=== PATIENT | male | born 1990 | race Caucasian/White ===

== ENCOUNTER 2023-07-04 09:56 | Outpatient (AMB) | payer OTHER, SELFPAY ==
--- NOTE | 2023-07-04 09:56 | MHC.OFFWIV ---
Intake Vital Signs 07/04/23 09:57 Height 5 ft 11 in Weight 180 lb BMI 25.1 BP 110/70 Blood Pressure Location Lt brachial Position Sitting Pulse 87 Pulse Source Pulse Oximeter Temp 97.4 F Temp Source Temporal Artery Scan Pulse Oximetry (%) 98 Oxygen Delivery Method Room Air Intake Visit Reasons: [employer] Back/neck pain Intake Note: pt is here today for back and neck pain started 2 weeks ago Patient Tobacco Use Status: Never used Tobacco Allergies amoxicillin Allergy (Mild, Verified 07/04/23 10:02) Rash Penicillins Allergy (Mild, Verified 07/04/23 10:00) rash Do you need a note to return to daycare/school/sports/work: Yes HPI HPI Comments History of Present Illness Details 33-year-old male complaining of bilateral lower back pain and left-sided thoracic pain for the last few weeks. 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 He also relates he has prominent positive rheumatoid disease and rheumatoid factor. He currently is not under the care of a seafood process worker. He denies any particular injury or trauma to the area but does relate to doing a lot heavy work at home. [facility] Social History Patient Tobacco Use Status: Never used Tobacco Review of Systems Const All systems reviewed & are unremarkable except as noted in HPI and below Eyes Reports no additional complaints ENT Reports no additional complaints Card Reports no additional complaints Resp Reports no additional complaints GI Reports no additional complaints Physical Exam Vital Signs: Last Vital Signs Temp 97.4 F 07/04/23 09:57 Pulse 87 07/04/23 09:57 BP 110/70 07/04/23 09:57 Pulse Ox 98 07/04/23 09:57 Oxygen Delivery Method Room Air 07/04/23 09:57 BMI result Body Mass Index 25.1 Back/Spine/Pelvis Cervical Spine: cervical ROM abnormal (Pain in extension) Thoracic/Lumbar Spine: thoracic and lumbar spine normal to inspection, bend over test abnormal, paraspinal muscle tenderness and thoraco-lumbar spasm Results Reviewed Results Reviewed: X-rays of his lumbar spine revealed some straightening of his lordotic curve otherwise they were unremarkable. This was reviewed with the patient Assessment & Plan Assessment & Plan (1) Spine pain, multilevel: Code(s): M54.9 - Dorsalgia, unspecified Plan: The patient was given a muscle relaxer for his thoracolumbar strain. I ordered lab work for evaluation by his PCP and seafood process worker due to his rheumatoid arthritis. He will follow up with his PCP in the next week (2) Muscle strain of left scapular region: Code(s): S46.912A - Strain of unspecified muscle, fascia and tendon at shoulder and upper arm level, left arm, initial encounter Plan: See plan (3) Lumbar strain: Code(s): S39.012A - Strain of muscle, fascia and tendon of lower back, initial encounter Plan: See plan Plan See plan Orders: Orders XR lumbar spine 2-3V Today M54.9 - Dorsalgia, unspecified Complete Blood Count Auto Diff Today M54.9 - Dorsalgia, unspecified XR thoracic spine 2V Today M54.9 - Dorsalgia, unspecified HLA B27 Today M54.9 - Dorsalgia, unspecified Comprehensive Met. Panel Today M54.9 - Dorsalgia, unspecified Medications: New cyclobenzaprine 5 mg PO Q12H 10 tabs 0RF Coding Level of Care Code Est Pt Level 4 (18796) Diagnoses Spine pain, multilevel M54.9 Muscle strain of left scapular region S46.912A Lumbar strain S39.012A
[2023-07-04 09:57] VITALS: BP 110/70; PULSE 87; TEMP 36.3; O2SAT 98; BMI 25.1
== END 2023-07-04 11:02 | disposition home or self-care (01) ==
PROVIDERS: Visit Provider Physician Assistant Medical
DX: M54.9 Dorsalgia, unspecified (principal); S46.912A Strain of unspecified muscle, fascia and tendon at shoulder and upper arm level, left arm, initial encounter; S39.012A Strain of muscle, fascia and tendon of lower back, initial encounter
CPT/HCPCS: 99214

== ENCOUNTER 2023-07-04 10:17 | Outpatient (REF) | payer OTHER, SELFPAY ==
--- NOTE | ~2023-07-04 | XR_ITS ---
EXAMINATION: THORACIC SPINE, LUMBAR SPINE CLINICAL INFORMATION: Dorsalgia COMPARISON: None available. TECHNIQUE: 2 views thoracic spine, 3 views lumbosacral spine FINDINGS: The thoracic spine appears unremarkable. Vertebral body heights are maintained as are disc spaces. No fractures or bony destructive lesions are seen. Paraspinal soft tissues appear normal. The visualized portions of the heart and lungs are unremarkable. The lumbar spine appears unremarkable. Disc spaces are well-maintained as are vertebral body heights. No fractures or bony destructive lesions. XR/XR lumbar spine 2-3V IMPRESSION: Unremarkable examinations.
--- NOTE | ~2023-07-04 | XR_ITS ---
EXAMINATION: THORACIC SPINE, LUMBAR SPINE CLINICAL INFORMATION: Dorsalgia COMPARISON: None available. TECHNIQUE: 2 views thoracic spine, 3 views lumbosacral spine FINDINGS: The thoracic spine appears unremarkable. Vertebral body heights are maintained as are disc spaces. No fractures or bony destructive lesions are seen. Paraspinal soft tissues appear normal. The visualized portions of the heart and lungs are unremarkable. The lumbar spine appears unremarkable. Disc spaces are well-maintained as are vertebral body heights. No fractures or bony destructive lesions. XR/XR thoracic spine 2V IMPRESSION: Unremarkable examinations.
[2023-07-04 13:10] LABS: MANUAL DIFF FLAG NO
[2023-07-04 13:33] LABS: Basophils Absolute Auto 0.1 X10*3/uL (0.0-0.2); Eosinophils Absolute Auto 0.1 X10*3/uL (0.0-0.4); Eosinophils Percent Auto 1.8 % (0-4); Hematocrit 47.2 % (42.0-52.0); Hemoglobin 16.9 g/dl (14.0-18.0); Imm Gran Abs Auto 0.08 X10*3/uL (0.00-0.03); Imm Gran Pct Auto 1.1 % (0.0-0.4); Lymphocytes Absolute Auto 1.3 X10*3/uL (1.2-4.9); Lymphocytes Percent Auto 18.1 % (20-40); Mean Corpuscular HGB Conc 35.8 g/dl (31.0-36.0); Mean Corpuscular Hemoglobin 31.1 pg (27.0-33.0); Mean Corpuscular Volume 86.8 fL (80.0-98.0); Mean Platelet Volume 9.8 fL (9.4-12.4); Monocytes Absolute Auto 0.6 X10*3/uL (0.1-1.2); Monocytes Percent Auto 7.6 % (2-11); Neutrophils Absolute Auto 5.1 x10*3/uL (2.0-8.3); Neutrophils Percent Auto 70.4 % (45-73); Platelet Count 262 X10*3/uL (160-400); Red Blood Count 5.44 X10*6/uL (4.60-5.80); Red Cell Distribution Width 11.4 % (11.0-16.0); White Blood Count 7.2 X10*3/uL (4.8-10.8)
[2023-07-04 13:49] LABS: Alanine Aminotransferase 76 U/L (0-40); Albumin Level 4.7 g/dL (3.5-5.0); Alkaline Phosphatase 79 U/L (39-117); Anion Gap 10 (12-20); Aspartate Amino Transferase 37 U/L (5-37); Bilirubin Total 0.6 mg/dL (0.0-1.0); Blood Urea Nitrogen 11 mg/dL (9-16); Calcium 9.8 mg/dL (8.4-10.2); Carbon Dioxide 29 mmol/L (22-29); Chloride 105 mmol/L (96-108); Estimated Glomerular Filt Rate > 60; Glucose Random 92 mg/dL (60-115); Potassium 4.2 mmol/L (3.3-5.1); Sodium 140 mmol/L (135-145); Total Protein 7.9 g/dL (6.5-8.0)
[2023-07-09 01:43] LABS: HLA B27 Negative (Negative)
== END 2023-07-04 10:18 | disposition home or self-care (01) ==
LOC: HO.HMGCX 10:17
PROVIDERS: Visit Provider Physician Assistant Medical
DX: M54.9 Dorsalgia, unspecified (principal)
CPT/HCPCS: 36415; 72070; 72100; 80053; 85025; 86812

== ENCOUNTER 2023-10-18 08:28 | Outpatient (AMB) | payer OTHER, SELFPAY ==
--- NOTE | 2023-10-18 08:34 | A.OFFVIS_ITS ---
Vital Signs 10/18/23 08:35 Height 5 ft 11 in Weight 183 lb 3.266 oz BMI 25.5 BP 118/72 Blood Pressure Location Lt brachial Position Sitting Pulse 95 Pulse Source Pulse Oximeter Pulse Oximetry (%) 97 Oxygen Delivery Method Room Air Intake Visit Reasons: RA Intake Note: New patient externally referral by PCP Marcella Ragland for RA. Patient, states he has had it as long as he can remember. Patient states he has been using ice and heat for relief. States he now has a crushing pain in his back. Allergies amoxicillin Allergy (Mild, Verified 10/18/23 08:40) Rash Penicillins Allergy (Mild, Verified 10/18/23 08:40) rash Medication List - Last Reconciled 10/18/23 by Gregory Chan MD cyclobenzaprine 5 mg PO Q12H HPI Comments Details: This is a 33-year-old male who presents for evaluation of arthritis. He states that over the last 6 months he has been having low back pain and stiffness, morning stiffness of his back lasting at least 1 hour. 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 He was never on any injectables. At that time he was having pain and swelling of his ankles, knees, elbows. He states that he continues to have joint pains in those areas but he has learned to deal with it has not been evaluated by a waterproofing supervisor since childhood. States that he was diagnosed with Crohn's colitis since around 2008 and was on different medicines for it, he was taking different NSAIDs and he developed stomach ulcers, these meds had to be discontinued, eventually he had an exploratory laparotomy and was found to have Meckel's diverticulitis which was resected. Since then he has not had any stomach issues. He also states that he was diagnosed with psoriasis since childhood, since then he would have different patches of psoriasis on his scalp and different areas, recently it has been more prominent on his palms. It is itchy, he treats it with moisturizers. His mother and maternal grandfather both have psoriasis Patient denies any fevers or unintentional weight loss. Denies history suggestive of uveitis [facility] Medical History (Updated 10/18/23 @ 09:48 by Gregory Chan MD) CASSIA (juvenile idiopathic arthritis) Psoriasis Stomach ulcer History of sinus problem Meckel's diverticulitis Surgical History H/O exploratory laparotomy Family History Mother Breast cancer Psoriasis Father Heart attack Maternal Grandfather Psoriasis Social History Alcohol intake: current Alcohol intake frequency: a few times a week Patient Tobacco Use Status: Never used Tobacco Current occupational status: employed Current occupation: salesman Review of Systems Const Denies fever(s) and Denies weight loss Musc Reports back pain, Reports arthralgias, Reports joint swelling and Reports stiffness Skin/Breast Reports lesions and Reports rash Physical Exam Vital Signs: Last Vital Signs Pulse 95 10/18/23 08:35 BP 118/72 10/18/23 08:35 Pulse Ox 97 10/18/23 08:35 Oxygen Delivery Method Room Air 10/18/23 08:35 BMI result Body Mass Index 25.5 Const General: cooperative, healthy appearing and comfortable Nutritional Appearance: average body habitus Orientation/consciousness: patient oriented x3 Limitations: no limitations HEENT Head: Yes normocephalic and Yes atraumatic Mouth: moist mucous membranes Resp Effort & Inspection: normal respiratory effort and able to speak in complete sentences Auscultation: clear to auscultation bilaterally Cardio Rate: regular rate Rhythm: regular rhythm Skin Other: Large psoriasis patches on both palms Neuro General: patient oriented x3 Extrem Other: Hands and fingers are puffy but there is no active synovitis Negative MCP squeeze test Right 3rd finger nail pitting Limited lateral flexion test bilaterally Jo test 10-13.5 cm Normal range of motion of neck Negative straight leg raise test bilaterally Negative Fabere test bilaterally No knee swelling or tenderness bilaterally No knee pain with flexion-extension bilaterally No ankle swelling or tenderness Negative MTP squeeze test bilaterally Assessment & Plan Assessment & Plan (1) Ankylosing spondylitis: Code(s): M45.9 - Ankylosing spondylitis of unspecified sites in spine Category: Medical Qualifiers: Ankylosing spondylitis location: sacrococcygeal region Qualified Code(s): M45.8 - Ankylosing spondylitis sacral and sacrococcygeal region Plan: This is a 33-year-old male with history of juvenile idiopathic arthritis and psoriasis who presents for evaluation of chronic low back pain for the last 6 months associated with morning stiffness lasting at least 1 hour. Clinical picture consistent with new onset ankylosing spondylitis. Check labs and imaging. Patient was on NSAIDs in the past for Crohn's colitis and he had to be discontinued due to peptic ulcers. Patient needs a different DMARDs, DMARDs such as methotrexate, leflunomide, sulfasalazine are not effective for axial disease which seems to be his most symptomatic area. Discussed risks and benefits of TNF inhibitors, patient agreed to proceed. Will start prior authorization for Humira or its bio similars pending -ve T-spot Follow-up in 6-8 weeks Plan I spent 47 minutes reviewing patient's chart, evaluating patient, ordering d iagnostic workup, counseling patient and documenting in the chart Orders: Orders Comprehensive Met. Panel Today M45.9 - Ankylosing spondylitis of unspecified sites in spine C Reactive Protein Today M45.9 - Ankylosing spondylitis of unspecified sites in spine Erythrocyte Sedimentation Rate Today M45.9 - Ankylosing spondylitis of unspecified sites in spine Protein Electrophoresis, Serum Today M45.9 - Ankylosing spondylitis of unspecified sites in spine T Spot TB Today Z11.7 - Encounter for testing for latent tuberculosis infection Cyclic Citrullinated Peptide Today M25.50 - Pain in unspecified joint NIRMAL Reflex Titer and Pattern Today M25.50 - Pain in unspecified joint XR ankle LT min 3V Today M45.9 - Ankylosing spondylitis of unspecified sites in spine XR ankle RT min 3V Today M45.9 - Ankylosing spondylitis of unspecified sites in spine XR hand wrist LT Today M45.9 - Ankylosing spondylitis of unspecified sites in spine XR lumbar spine 4V min Today M45.9 - Ankylosing spondylitis of unspecified sites in spine Complete Blood Count Auto Diff Today M45.9 - Ankylosing spondylitis of unspecified sites in spine Hepatitis A,B,C Profile Today Z11.59 - Encounter for screening for other viral diseases Immunofixation Pnl, Serum Today M45.9 - Ankylosing spondylitis of unspecified sites in spine HLA B27 Today M45.9 - Ankylosing spondylitis of unspecified sites in spine Rheumatoid Factor Today M25.50 - Pain in unspecified joint XR hand wrist RT Today M45.9 - Ankylosing spondylitis of unspecified sites in spine XR sacroiliac joint min 3V Today M45.9 - Ankylosing spondylitis of unspecified sites in spine XR foot LT min 3V Today M45.9 - Ankylosing spondylitis of unspecified sites in spine XR foot RT min 3V Today M45.9 - Ankylosing spondylitis of unspecified sites in spine Coding Level of Care Code New Pt Level 4 (44026) Diagnoses Ankylosing spondylitis of sacrococcygeal region M45.8 Ankylosing spondylitis location: sacrococcygeal region
[2023-10-18 08:35] VITALS: BP 118/72; PULSE 95; O2SAT 97; BMI 25.5
== END 2023-10-18 09:20 | disposition home or self-care (01) ==
PROVIDERS: PCP Physician Assistant; Referring Provider Physician Assistant; Visit Provider Student in an Organized Health Care Education/Training Program
DX: M45.8 Ankylosing spondylitis sacral and sacrococcygeal region (principal)
CPT/HCPCS: 99204

== ENCOUNTER 2023-10-18 08:28 | Outpatient (REF) | payer OTHER, SELFPAY ==
--- NOTE | ~2023-10-18 | XR_ITS ---
EXAMINATION: XR ANKLE, RIGHT XR FOOT, RIGHT CLINICAL INFORMATION: Ankylosing spondylitis. COMPARISON: None available. TECHNIQUE: AP, lateral, and mortise views of the right ankle. AP, lateral, and oblique views of the right foot. FINDINGS: No fracture. Alignment is anatomic. No erosions. Joint spaces are maintained. Soft tissues are normal. XR/XR ankle RT min 3V IMPRESSION: Normal right ankle. Electronically signed by: Cal Ramirez MD 11/15/2023 12:38 PM EDT
--- NOTE | ~2023-10-18 | XR_ITS ---
EXAMINATION: XR HAND/WRIST, RIGHT XR HAND/WRIST, LEFT CLINICAL INFORMATION: Ankylosing spondylitis COMPARISON: None TECHNIQUE: PA, lateral, and oblique views of the each hand and wrist. FINDINGS: RIGHT HAND/WRIST: The bones and soft tissues are normal. No fracture. Alignment is anatomic. Joint spaces are maintained. No erosions or soft tissue calcifications. LEFT HAND/WRIST: The bones and soft tissues are normal. No fracture. Alignment is anatomic. Joint spaces are maintained. No erosions or soft tissue calcifications. XR/XR hand wrist LT IMPRESSION: Normal radiographs of the hands and wrists. No radiographic signs of inflammatory arthropathy. Electronically signed by: Kevin Duron MD 11/05/2023 07:04 PM EDT
--- NOTE | ~2023-10-18 | XR_ITS ---
EXAMINATION: XR ANKLE, RIGHT XR FOOT, RIGHT CLINICAL INFORMATION: Ankylosing spondylitis. COMPARISON: None available. TECHNIQUE: AP, lateral, and mortise views of the right ankle. AP, lateral, and oblique views of the right foot. FINDINGS: No fracture. Alignment is anatomic. No erosions. Joint spaces are maintained. Soft tissues are normal. XR/XR foot RT min 3V IMPRESSION: Normal right ankle. Electronically signed by: Cal Ramirez MD 11/15/2023 12:38 PM EDT
--- NOTE | ~2023-10-18 | XR_ITS ---
EXAMINATION: XR LUMBAR SPINE XR SACROILIAC JOINTS CLINICAL INDICATION: Spondylitis of unspecified sites in spine. COMPARISON: 07/04/2023 lumbar spine. TECHNIQUE: 5 views of the lumbar spine. 3 views of the sacroiliac joints. FINDINGS: LUMBAR SPINE: Redemonstration of asymmetric sclerotic focus measuring approximately 1.2 cm overlying the medial aspect of the left iliac wing/sacrum. Slight leftward curvature of the lumbar spine. Straightening of the normal lumbar lordosis. Facet arthritis in the lower lumbar spine. Lumbar vertebral body heights and disc space heights are preserved. Possible spondylolysis at L5-S1 is difficult to evaluate due to overlying bony structures. BILATERAL SACROILIAC JOINTS: Asymmetric degenerative changes in the right sacroiliac joint greater than left. XR/XR sacroiliac joint min 3V IMPRESSION: 1. Redemonstration of asymmetric sclerotic focus measuring approximately 1.2 cm overlying the medial aspect of the left iliac wing/sacrum. 2. Facet arthritis in the lower lumbar spine. 3. Possible spondylolysis at L5-S1 is difficult to evaluate due to overlying bony structures. 4. Asymmetric degenerative changes in the right sacroiliac joint greater than left. This study was presented today October 18, 2023 for interpretation. Stat results provided at this time as requested by referring provider.
--- NOTE | ~2023-10-18 | XR_ITS ---
EXAMINATION: XR ANKLE, LEFT XR FOOT, LEFT CLINICAL INFORMATION: Ankylosing spondylitis. COMPARISON: None available. TECHNIQUE: AP, lateral, and mortise views of the left ankle. AP, lateral, and oblique views of the left foot. FINDINGS: No fracture. Alignment is anatomic. No erosions. Joint spaces are maintained. Soft tissues are normal. XR/XR foot LT min 3V IMPRESSION: Normal left ankle. Electronically signed by: Cal Ramirez MD 11/15/2023 12:36 PM EDT
--- NOTE | ~2023-10-18 | XR_ITS ---
EXAMINATION: XR HAND/WRIST, RIGHT XR HAND/WRIST, LEFT CLINICAL INFORMATION: Ankylosing spondylitis COMPARISON: None TECHNIQUE: PA, lateral, and oblique views of the each hand and wrist. FINDINGS: RIGHT HAND/WRIST: The bones and soft tissues are normal. No fracture. Alignment is anatomic. Joint spaces are maintained. No erosions or soft tissue calcifications. LEFT HAND/WRIST: The bones and soft tissues are normal. No fracture. Alignment is anatomic. Joint spaces are maintained. No erosions or soft tissue calcifications. XR/XR hand wrist RT IMPRESSION: Normal radiographs of the hands and wrists. No radiographic signs of inflammatory arthropathy. Electronically signed by: Kevin Duron MD 11/05/2023 07:04 PM EDT
--- NOTE | ~2023-10-18 | XR_ITS ---
EXAMINATION: XR LUMBAR SPINE XR SACROILIAC JOINTS CLINICAL INDICATION: Spondylitis of unspecified sites in spine. COMPARISON: 07/04/2023 lumbar spine. TECHNIQUE: 5 views of the lumbar spine. 3 views of the sacroiliac joints. FINDINGS: LUMBAR SPINE: Redemonstration of asymmetric sclerotic focus measuring approximately 1.2 cm overlying the medial aspect of the left iliac wing/sacrum. Slight leftward curvature of the lumbar spine. Straightening of the normal lumbar lordosis. Facet arthritis in the lower lumbar spine. Lumbar vertebral body heights and disc space heights are preserved. Possible spondylolysis at L5-S1 is difficult to evaluate due to overlying bony structures. BILATERAL SACROILIAC JOINTS: Asymmetric degenerative changes in the right sacroiliac joint greater than left. XR/XR lumbar spine 4V min IMPRESSION: 1. Redemonstration of asymmetric sclerotic focus measuring approximately 1.2 cm overlying the medial aspect of the left iliac wing/sacrum. 2. Facet arthritis in the lower lumbar spine. 3. Possible spondylolysis at L5-S1 is difficult to evaluate due to overlying bony structures. 4. Asymmetric degenerative changes in the right sacroiliac joint greater than left. This study was presented today October 18, 2023 for interpretation. Stat results provided at this time as requested by referring provider.
--- NOTE | ~2023-10-18 | XR_ITS ---
EXAMINATION: XR ANKLE, LEFT XR FOOT, LEFT CLINICAL INFORMATION: Ankylosing spondylitis. COMPARISON: None available. TECHNIQUE: AP, lateral, and mortise views of the left ankle. AP, lateral, and oblique views of the left foot. FINDINGS: No fracture. Alignment is anatomic. No erosions. Joint spaces are maintained. Soft tissues are normal. XR/XR ankle LT min 3V IMPRESSION: Normal left ankle. Electronically signed by: Cal Ramirez MD 11/15/2023 12:36 PM EDT
[2023-10-18 09:45] LABS: MANUAL DIFF FLAG NO
[2023-10-18 10:24] LABS: Imm Gran Pct Auto 3.6 % (0.0-0.4); Mean Corpuscular HGB Conc 36.2 g/dl (31.0-36.0); Mean Corpuscular Hemoglobin 31.1 pg (27.0-33.0); Mean Corpuscular Volume 85.9 fL (80.0-98.0); Mean Platelet Volume 9.1 fL (9.4-12.4); Neutrophils Percent Auto 67.4 % (45-73); Platelet Count 315 X10*3/uL (160-400); Red Blood Count 5.47 X10*6/uL (4.60-5.80); Red Cell Distribution Width 11.6 % (11.0-16.0)
[2023-10-18 10:25] LABS: Basophils Absolute Auto 0.1 X10*3/uL (0.0-0.2); Basophils Percent Auto 0.9 % (0-2); Eosinophils Absolute Auto 0.1 X10*3/uL (0.0-0.4); Eosinophils Percent Auto 1.3 % (0-4); Imm Gran Abs Auto 0.32 X10*3/uL (0.00-0.03); Lymphocytes Absolute Auto 1.7 X10*3/uL (1.2-4.9); Lymphocytes Percent Auto 18.4 % (20-40); Monocytes Absolute Auto 0.8 X10*3/uL (0.1-1.2); Monocytes Percent Auto 8.4 % (2-11)
[2023-10-18 10:54] LABS: Alanine Aminotransferase 124 U/L (0-40); Albumin Level 4.7 g/dL (3.5-5.0); Alkaline Phosphatase 88 U/L (39-117); Anion Gap 14 (12-20); Aspartate Amino Transferase 52 U/L (5-37); Bilirubin Total 0.4 mg/dL (0.0-1.0); Blood Urea Nitrogen 10 mg/dL (9-16); C Reactive Protein 0.39 mg/dL (< or = 0.50); Calcium 9.8 mg/dL (8.4-10.2); Carbon Dioxide 24 mmol/L (22-29); Chloride 105 mmol/L (96-108); Estimated Glomerular Filt Rate > 60; Glucose Random 102 mg/dL (60-115); Potassium 4.3 mmol/L (3.3-5.1); Sodium 139 mmol/L (135-145)
[2023-10-18 10:58] LABS: Erythrocyte Sedimentation Rate 6 MM/HR (0-15)
[2023-10-18 11:00] LABS: Rheumatoid Factor < 13.0 IU/mL (<15.0)
[2023-10-18 11:11] LABS: HBS Num1 283.53 mIU/mL (0-7.99); HBc Num1 0.08 S/CO (0.00-0.79); HBsAGNum1 0.27 S/CO (0.00-0.99); Hepatitis B Core Antibody Nonreactive (Nonreactive); Hepatitis B Surface Antigen Negative (Negative); ~HepC Num1 0.11 S/CO (0.00-0.79); ~Hepatitis A Antibody IgM Nonreactive (Nonreactive); ~Hepatitis B Surface Antibody REACTIVE (Nonreactive); ~Hepatitis C Antibody Nonreactive (Nonreactive)
[2023-10-19 22:14] LABS: IgA 166 mg/dL (47-310); IgG 1103 mg/dL (600-1640); IgM 100 mg/dL (50-300)
[2023-10-20 13:09] LABS: Prot Elec - Albumin 4.7 g/dL (3.8-4.8); Prot Elec - Alpha1 0.3 g/dL (0.2-0.3); Prot Elec - Alpha2 0.6 g/dL (0.5-0.9); Prot Elec - Beta 1 0.5 g/dL (0.4-0.6); Prot Elec - Beta 2 0.4 g/dL (0.2-0.5); Prot Elec - Total Protein 7.5 g/dL (6.1-8.1)
[2023-10-21 16:29] LABS: TS Negative Control Passed; TS Panel A 0; TS Panel B 1; TS Positive Control Passed; TSpotTB Negative (Negative)
[2023-10-23 10:39] LABS: Anti Nuclear Antibody Screen NEGATIVE (NEGATIVE)
[2023-10-23 16:25] LABS: Cyclic Citrullinated Peptide <16 UNITS
[2023-10-24 23:08] LABS: HLA B27 Negative (Negative)
== END 2023-10-18 08:29 | disposition home or self-care (01) ==
LOC: HO.XRAY 08:28
PROVIDERS: PCP Physician Assistant; Visit Provider Student in an Organized Health Care Education/Training Program
DX: Z11.7 Encounter for testing for latent tuberculosis infection (principal); Z11.59 Encounter for screening for other viral diseases; M45.9 Ankylosing spondylitis of unspecified sites in spine; M25.50 Pain in unspecified joint; M45.8 Ankylosing spondylitis sacral and sacrococcygeal region; Z72.89 Other problems related to lifestyle
CPT/HCPCS: 36415; 72110; 72202; 73110; 73130; 73610; 73630; 80053; 82784; 84165; 85025; 85652; 86038; 86140; 86200; 86334; 86431; 86481; 86704; 86706; 86709; 86803; 86812; 87340

== ENCOUNTER 2024-01-31 07:58 | Outpatient (REF) | payer OTHER, SELFPAY | END 2024-01-31 07:59 | disposition home or self-care (01) | LOC: HO.MRI 07:58 | PROVIDERS: PCP Physician Assistant; Visit Provider Student in an Organized Health Care Education/Training Program | DX: M45.8 Ankylosing spondylitis sacral and sacrococcygeal region (principal) | CPT/HCPCS: 72195 ==

== ENCOUNTER → 2024-01-31 08:17 | Outpatient (BNV) | payer OTHER, SELFPAY | PROVIDERS: PCP Physician Assistant; Visit Provider Radiology Diagnostic Radiology | DX: M89.9 Disorder of bone, unspecified (principal) | CPT/HCPCS: 72195 ==

== ENCOUNTER 2024-03-27 07:49 | Outpatient (AMB) | payer OTHER, SELFPAY ==
--- NOTE | 2024-03-27 08:04 | A.OFFVIS_ITS ---
Vital Signs 03/27/24 08:07 Height 5 ft 11 in Weight 194 lb 3.636 oz BMI 27.1 BP 120/80 Blood Pressure Location Lt brachial Position Sitting Pulse 95 Pulse Source Pulse Oximeter Pulse Oximetry (%) 98 Oxygen Delivery Method Room Air Intake Visit Reasons: RA (discuss MRI results) Intake Note: Patient presents for RA. Allergies amoxicillin Allergy (Mild, Verified 03/27/24 08:07) Rash Penicillins Allergy (Mild, Verified 03/27/24 08:07) rash Medication List - Last Reconciled 03/27/24 by Gregory Chan MD adalimumab (Humira(CF) Pen) inject one - 40 mg/0.4 mL pen every 2 weeks subcut HPI Comments Details: Patient presents for follow-up after completion of his diagnostic workup. He continues to feel about the same. He states that 4-5 days out of the week he would wake up with pain and morning stiffness of his back lasting 1-2 hours improved with stretching, moving around and hot showers. He has had bilateral elbow bilateral knee and ankle pain since his childhood. His rashes are better now. Initial history: This is a 33-year-old male who presents for evaluation of arthritis. He states that over the last 6 months he has been having low back pain and stiffness, morning stiffness of his back lasting at least 1 hour. 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 He was never on any injectables. At that time he was having pain and swelling of his ankles, knees, elbows. He states that he continues to have joint pains in those areas but he has learned to deal with it has not been evaluated by a professor of french since childhood. States that he was diagnosed with Crohn's colitis since around 2008 and was on different medicines for it, he was taking different NSAIDs and he developed stomach ulcers, these meds had to be discontinued, eventually he had an exploratory laparotomy and was found to have Meckel's diverticulitis which was resected. Since then he has not had any stomach issues. He also states that he was diagnosed with psoriasis since childhood, since then he would have different patches of psoriasis on his scalp and different areas, recently it has been more prominent on his palms. It is itchy, he treats it with moisturizers. His mother and maternal grandfather both have psoriasis Patient denies any fevers or unintentional weight loss. Denies history suggestive of uveitis [facility] Medical History CASSIA (juvenile idiopathic arthritis) Psoriasis Stomach ulcer History of sinus problem Meckel's diverticulitis Surgical History H/O exploratory laparotomy Family History Mother Breast cancer Psoriasis Father Heart attack Maternal Grandfather Psoriasis Social History Alcohol intake: current Alcohol intake frequency: a few times a week Patient Tobacco Use Status: Never used Tobacco Current occupational status: employed Current occupation: salesman Review of Systems Const Denies fever(s) and Denies weight loss Musc Reports back pain, Reports arthralgias, Reports joint swelling and Reports stiffness Physical Exam Vital Signs: Last Vital Signs Pulse 95 03/27/24 08:07 BP 120/80 03/27/24 08:07 Pulse Ox 98 03/27/24 08:07 Oxygen Delivery Method Room Air 03/27/24 08:07 BMI result Body Mass Index 27.1 Const General: cooperative, healthy appearing and comfortable Nutritional Appearance: average body habitus Orientation/consciousness: patient oriented x3 Limitations: no limitations HEENT Head: Yes normocephalic and Yes atraumatic Mouth: moist mucous membranes Resp Effort & Inspection: normal respiratory effort and able to speak in complete sentences Skin Other: Resolving rash on left palm Neuro General: patient oriented x3 Extrem Other: Hands and fingers are puffy but there is no active synovitis Negative MCP squeeze test Right 3rd finger nail pitting Limited lateral flexion test bilaterally Jo test 10-13.5 cm Normal range of motion of neck Negative straight leg raise test bilaterally Negative Roman test bilaterally No knee swelling or tenderness bilaterally No knee pain with flexion-extension bilaterally No ankle swelling or tenderness Negative MTP squeeze test bilaterally Assessment & Plan Assessment & Plan (1) Ankylosing spondylitis: Code(s): M45.9 - Ankylosing spondylitis of unspecified sites in spine Category: Medical Qualifiers: Ankylosing spondylitis location: sacrococcygeal region Qualified Code(s): M45.8 - Ankylosing spondylitis sacral and sacrococcygeal region Plan: This is a 33-year-old male with history of juvenile idiopathic arthritis and psoriasis who presents for evaluation of chronic low back pain for the last 6 months associated with morning stiffness lasting at least 1 hour. On initial history I suspected ankylosing spondylitis/non radiographic axial spa versus psoriatic arthritis. His blood work is unremarkable with normal inflammatory markers and negative serologies including HLA B27. His pelvic MRI did not show sacroiliitis however patient's history is quite convincing for a seronegative spondyloarthropathy. Patient was on NSAIDs in the past for Crohn's colitis and had to be discontinued due to peptic ulcers We discussed risks and benefits of Humira. Patient agreed to proceed. Humira was approved, start Humira 40 mg every other week. Advised patient to monitor his symptoms and we will re-evaluate him next visit Labs before next visit in 3 months (2) High risk medication use: Code(s): Z79.899 - Other exterminator helper termite (current) drug therapy Category: Medical Plan: Side effects of Humira were discussed with the patient in detail including increased risk of infection, demyelinating disease, reactivation of latent TB, possible increased risk of solid and skin tumors. Patient fully aware. Advised patient to seek medical care JESSE if patient has an infection and advised patient to stop the medication until the infection is resolved. (3) Transaminitis: Code(s): R74.01 - Elevation of levels of liver transaminase levels Category: Medical Plan: Patient consumes 3-4 12 oz beers 3-4 nights a week. Advised patient to cut down significantly Plan I spent 27 minutes reviewing patient's chart, evaluating patient, ordering diagnostic workup, counseling patient and documenting in the chart Orders: Orders Complete Blood Count Auto Diff 3 Months M45.8 - Ankylosing spondylitis sacral and sacrococcygeal region, Z79.899 - Other exterminator helper termite (current) drug therapy C Reactive Protein 3 Months M45.8 - Ankylosing spondylitis sacral and sacrococcygeal region, Z79.899 - Other exterminator helper termite (current) drug therapy Comprehensive Met. Panel 3 Months M45.8 - Ankylosing spondylitis sacral and sacrococcygeal region, Z79.899 - Other chcf (current) drug therapy Erythrocyte Sedimentation Rate 3 Months M45.8 - Ankylosing spondylitis sacral and sacrococcygeal region, Z79.899 - Other exterminator helper termite (current) drug therapy Medications: Refilled adalimumab (Humira(CF) Pen) inject one - 40 mg/0.4 mL pen every 2 weeks subcut 2 ea 2RF Coding Level of Care Code Est Pt Level 4 (81564) Complex EM visit Add On G2211 Diagnoses Ankylosing spondylitis of sacrococcygeal region M45.8 Ankylosing spondylitis location: sacrococcygeal region High risk medication use Z79.899 Transaminitis R74.01
[2024-03-27 08:07] VITALS: BP 120/80; PULSE 95; O2SAT 98; BMI 27.1
== END 2024-03-27 08:46 | disposition home or self-care (01) ==
PROVIDERS: PCP Physician Assistant; Visit Provider Student in an Organized Health Care Education/Training Program
DX: M45.8 Ankylosing spondylitis sacral and sacrococcygeal region (principal); Z79.899 Other long term (current) drug therapy; R74.01 Elevation of levels of liver transaminase levels
CPT/HCPCS: 99214

== ENCOUNTER → 2024-11-15 14:13 | Outpatient (BNVA) | payer SELFPAY | PROVIDERS: PCP Physician Assistant; Visit Provider Student in an Organized Health Care Education/Training Program | DX: Z13.89 Encounter for screening for other disorder (principal) ==